=== PATIENT | male | born 1965 | race Caucasian/White ===

== ENCOUNTER 2021-03-17 20:19 | Emergency (ER) | payer BC ==
[2021-03-17 20:42] VITALS: BP 140/88; PULSE 84; TEMP 98.3; BMI 30.1
== END 2021-03-17 21:22 | disposition home or self-care (01) ==
LOC: SUPCPDRO 20:19 → FER 20:19
DX: S52.502A Unspecified fracture of the lower end of left radius, initial encounter for closed fracture (principal); W01.0XXA Fall on same level from slipping, tripping and stumbling without subsequent striking against object, initial encounter; Y93.21 Activity, ice skating
CPT/HCPCS: 73110-TC-LT-FY; 99283-25

== ENCOUNTER 2021-07-09 08:08 | Day surgery (SDC) | payer BC ==
[2021-07-04 11:42] VITALS: BMI 301.4
[2021-07-09] MEDS ORDERED: MIDAZOLAM HCL 2 MG/2 ML SINGLE DOSE VIAL ONE (08:35)
[2021-07-09] MEDS ORDERED: PROPOFOL 20 ML ONE (09:24)
[2021-07-09] MEDS ORDERED: DEXAMETHASONE SOD PHOSPHATE 4 MG/1 ML VIAL ONE (09:29)
[2021-07-09] MEDS ORDERED: ONDANSETRON 4 MG/2 ML VIAL ONE (09:29)
[2021-07-09] MEDS ORDERED: PHENYLEPHRINE HCL 10 MG/1 ML SINGLE DOSE VIAL ONE ×2 (09:30)
[2021-07-09] MEDS ORDERED: BUPIVACAINE HCL/PF 0.5% (5MG/ML) 10 ML VIAL IJ ONE (10:30)
[2021-07-09] MEDS ORDERED: oxyCODONE HCL 5 MG TABLET PO PRN (10:48)
[2021-07-09] MEDS ORDERED: ONDANSETRON 4 MG/2 ML VIAL IVPUSH PRN (10:48)
[2021-07-09] MEDS ORDERED: LACTATED RINGERS SOLUTION 1,000 ML IV SCH (11:00)
[2021-07-09 11:59] VITALS: TEMP 97.8
[2021-07-09 12:03] VITALS: BP 135/86; PULSE 75
== END 2021-07-09 11:50 | disposition home or self-care (01) ==
LOC: FASU 08:08
PROVIDERS: ATTEND Orthopaedic Surgery Hand Surgery
PROC: 0LX80ZZ Transfer Left Hand Tendon, Open Approach (ICD-10-PCS; 2021-07-09)
PROC: 0LX60ZZ Transfer Left Lower Arm and Wrist Tendon, Open Approach (ICD-10-PCS; principal; 2021-07-09 09:35)
DX: S66.212A Strain of extensor muscle, fascia and tendon of left thumb at wrist and hand level, initial encounter (principal); X58.XXXA Exposure to other specified factors, initial encounter; Y93.9 Activity, unspecified; Y92.9 Unspecified place or not applicable
CPT/HCPCS: 94760